=== PATIENT | male | born 1960 | race Caucasian/White ===

== ENCOUNTER 2018-12-11 23:09 | Emergency (ER) | payer OTHER, MEDICAID ==
[~2018-12-11] VITALS: Ht 185.4 cm; Wt 142.0 kg
[~2018-12-11 23:09] MED LIST: CIPROFLOXIN HC2.5 M1 OPHTHALMIC; EFFEXOR XR75 MG PO; ERYTHROMYCIN E3.5 G1 OPHTHALMIC; ERYTHROMYCIN E3.5 G3 OPHTHALMIC; FLEXERIL PO; HYDROCODONE-APA1 TA1 PO; NEURONTIN 300300 M1 PO; NORCO 5-325 TA1 EACH PO; PERCOCET PO; PREDNISONE 10 M10 MG PO; SIMVASTATIN40 MG PO; TOPAMAX100 MG PO; XANAX1 MG PO
[2018-12-11] MEDS ORDERED: MELOXICAM15 MG PO (23:24)
[2018-12-11] MEDS ORDERED: AUGMENTIN 875-1 EACH PO ×2 (23:39→23:41)
[2018-12-11 23:50] VITALS: BP 148/62
== END 2018-12-11 23:51 | disposition home or self-care (01) ==
LOC: M.ERS 23:09
DX: H66.91 Otitis media, unspecified, right ear (principal); E78.5 Hyperlipidemia, unspecified; F17.210 Nicotine dependence, cigarettes, uncomplicated; Z85.72 Personal history of non-Hodgkin lymphomas